=== PATIENT | male | born 1970 | race Caucasian/White ===

== ENCOUNTER → 2019-08-02 14:01 | Outpatient (CLI) | payer MEDICARE, MEDICAID, SELFPAY ==
[2019-08-02 14:23] LABS: Basophils # 0.1 K/mm3 (0-0.2); Basophils % 0.9 % (0.1-2.0); Eosinophils # 0.1 K/mm3 (0.0-0.4); Eosinophils % 1.5 % (0.1-12.0); Hematocrit 43.6 % (42.0-52.0); Lymphocytes # 2.6 K/mm3 (0.7-4.5); Lymphocytes % 30.2 % (10-50); Mean Corpuscular HGB Conc 34.3 g/dL (31.8-35.4); Mean Corpuscular Hemoglobin 29.6 pg (27.0-31.2); Mean Corpuscular Volume 86.4 fl (80-94); Mean Platelet Volume 8.6 fl (7.4-10.4); Monocytes # 0.6 K/mm3 (0.1-1.0); Monocytes % 7.2 % (1.7-9.3); Neutrophils # 5.1 K/mm3 (1.8-7.8); Neutrophils % 60.3 % (37.0-80.0); Platelet Count 180 K/mm3 (142-424); Red Blood Count 5.05 M/mm3 (4.60-6.20); Red Cell Distribution Width 13.7 % (11.5-17.5); White Blood Count 8.5 K/mm3 (4.8-10.8)
[2019-08-02 15:01] LABS: Albumin/Globulin Ratio 1.5 (1.1-1.8); Alkaline Phosphatase 91 U/L (38-126); Anion Gap 10.2 mEq/L (5-15); Aspartate Amino Transferase 27 U/L (17-59); Blood Urea Nitrogen 20 mg/dl (9-20); Calcium 9.3 mg/dl (8.4-10.2); Carbon Dioxide 31 mmol/L (22.0-30.0); Chloride 101 mmol/L (98-107); Estimated Glomerular Filt Rate 142 ml/min (>60); GFR (African American) 172 ML/MIN (>60); Globulin 2.7 g/dL (1.3-3.2); Glucose 85 mg/dl (74-100); Potassium 4.2 mmoL/L (3.5-5.1); Sodium 138 mmol/L (136-145); Total Protein,Serum 6.7 g/dl (6.3-8.2)
[2019-08-02 15:06] LABS: Bilirubin,Total < 0.1 mg/dl (0.2-1.3); Occult Blood,Stool Positive (Negative)
[2019-08-02 15:20] LABS: Alanine Aminotransferase 34 U/L (12-78)
== END ==
PROVIDERS: Visit Provider Internal Medicine Adolescent Medicine
DX: K92.1 Melena (principal)
CPT/HCPCS: 80053; 82272; 85025; G0328

== ENCOUNTER → 2020-09-07 09:33 | Outpatient (CLI) | payer MEDICARE, MEDICAID, SELFPAY ==
[2020-09-07 14:20] LABS: Chloride 101 mmol/L (98-107); Potassium 3.5 mmoL/L (3.5-5.1); Sodium 138 mmol/L (136-145)
[2020-09-07 14:23] LABS: Alanine Aminotransferase 33 U/L (12-78); Albumin Level 3.8 g/dl (3.5-5.0); Albumin/Globulin Ratio 1.6 (1.1-1.8); Alkaline Phosphatase 103 U/L (38-126); Anion Gap 10.5 mEq/L (5-15); Aspartate Amino Transferase 23 U/L (17-59); Bilirubin,Total 0.3 mg/dl (0.2-1.3); Blood Urea Nitrogen 22 mg/dl (9-20); Calcium 9.2 mg/dl (8.4-10.2); Carbon Dioxide 30 mmol/L (22.0-30.0); Estimated Glomerular Filt Rate 141 ml/min (>60); GFR (African American) 171 ML/MIN (>60); Globulin 2.4 g/dL (1.3-3.2); Glucose 133 mg/dl (74-100); Total Protein,Serum 6.2 g/dl (6.3-8.2)
[2020-09-07 14:34] LABS: Basophils # 0.1 K/mm3 (0-0.2); Basophils % 0.6 % (0.1-2.0); Eosinophils # 0.2 K/mm3 (0.0-0.4); Eosinophils % 2.2 % (0.1-12.0); Hematocrit 43.8 % (42.0-52.0); Hemoglobin 14.6 g/dL (14.1-18.0); Lymphocytes # 2.8 K/mm3 (0.7-4.5); Lymphocytes % 32.2 % (10-50); Mean Corpuscular HGB Conc 33.3 g/dL (31.8-35.4); Mean Corpuscular Hemoglobin 29.6 pg (27.0-31.2); Mean Corpuscular Volume 89.1 fl (80-94); Mean Platelet Volume 9.7 fl (7.4-10.4); Monocytes # 0.8 K/mm3 (0.1-1.0); Monocytes % 9.6 % (1.7-9.3); Neutrophils # 4.9 K/mm3 (1.8-7.8); Neutrophils % 55.4 % (37.0-80.0); Platelet Count 181 K/mm3 (142-424); Red Blood Count 4.92 M/mm3 (4.60-6.20); Red Cell Distribution Width 14.4 % (11.5-17.5); White Blood Count 8.8 K/mm3 (4.8-10.8)
[2020-09-13 22:56] LABS: Free Valproic Acid (Depakote) 7.9
== END ==
PROVIDERS: Visit Provider Nurse Practitioner Family
DX: G81.94 Hemiplegia, unspecified affecting left nondominant side (principal); Z51.81 Encounter for therapeutic drug level monitoring
CPT/HCPCS: 36415; 80053; 80165; 85025

== ENCOUNTER → 2021-01-13 07:48 | Outpatient (CLI) | payer MEDICARE, MEDICAID, SELFPAY ==
[2021-01-13 09:03] LABS: Basophils # 0.1 K/mm3 (0-0.2); Basophils % 1.2 % (0.1-2.0); Eosinophils # 0.2 K/mm3 (0.0-0.4); Eosinophils % 2.8 % (0.1-12.0); Hematocrit 46.8 % (42.0-52.0); Lymphocytes # 3.2 K/mm3 (0.7-4.5); Mean Corpuscular HGB Conc 32.1 g/dL (31.8-35.4); Mean Corpuscular Hemoglobin 29.4 pg (27.0-31.2); Mean Corpuscular Volume 91.5 fl (80-94); Mean Platelet Volume 9.2 fl (7.4-10.4); Monocytes # 0.7 K/mm3 (0.1-1.0); Monocytes % 8.3 % (1.7-9.3); Neutrophils # 3.8 K/mm3 (1.8-7.8); Neutrophils % 47.7 % (37.0-80.0); Platelet Count 207 K/mm3 (142-424); Red Blood Count 5.12 M/mm3 (4.60-6.20); Red Cell Distribution Width 14.4 % (11.5-17.5)
[2021-01-13 09:24] LABS: Chloride 99 mmol/L (98-107)
[2021-01-13 09:25] LABS: Potassium 3.8 mmoL/L (3.5-5.1); Sodium 138 mmol/L (136-145)
[2021-01-13 09:27] LABS: Blood Urea Nitrogen 13 mg/dl (9-20); Estimated Glomerular Filt Rate 141 ml/min (>60); GFR (African American) 171 ML/MIN (>60)
[2021-01-13 09:28] LABS: Alanine Aminotransferase 19 U/L (12-78); Albumin Level 3.6 g/dl (3.5-5.0); Albumin/Globulin Ratio 1.5 (1.1-1.8); Alkaline Phosphatase 93 U/L (38-126); Anion Gap 12.8 mEq/L (5-15); Aspartate Amino Transferase 19 U/L (17-59); Bilirubin,Total < 0.1 mg/dl (0.2-1.3); Calcium 8.9 mg/dl (8.4-10.2); Carbon Dioxide 30 mmol/L (22.0-30.0); Chol/HDL Ratio 6.9 (1-3.5); Cholesterol 166 mg/dl (140-200); Globulin 2.4 g/dL (1.3-3.2); Glucose 113 mg/dl (74-100); HDL Cholesterol 24 mg/dl (40-60); Triglycerides 322 mg/dl (30-150); VLDL Cholesterol 64 mg/dL (0-40)
[2021-01-13 09:39] LABS: Direct LDL Cholesterol 103.98 mg/dL (100-129)
[2021-01-29 15:54] LABS: Free Valproic Acid (Depakote) 6.1
== END ==
PROVIDERS: Visit Provider Nurse Practitioner Family
DX: G81.94 Hemiplegia, unspecified affecting left nondominant side (principal); F41.9 Anxiety disorder, unspecified; Z79.899 Other long term (current) drug therapy
CPT/HCPCS: 36415; 80053; 80061; 80165; 85025

== ENCOUNTER → 2021-01-31 07:14 | Outpatient (CLI) | payer MEDICARE, MEDICAID, SELFPAY ==
[2021-05-04 04:21] LABS: Free Valproic Acid (Depakote) 11.8
== END ==
PROVIDERS: Visit Provider Nurse Practitioner Family
DX: Z51.81 Encounter for therapeutic drug level monitoring (principal)
CPT/HCPCS: 36415; 80165

== ENCOUNTER → 2021-03-17 06:59 | Outpatient (CLI) | payer MEDICARE, MEDICAID, SELFPAY ==
[2021-03-17 08:51] LABS: Basophils # 0.1 K/mm3 (0-0.2); Basophils % 0.9 % (0.1-2.0); Eosinophils # 0.2 K/mm3 (0.0-0.4); Eosinophils % 1.9 % (0.1-12.0); Hematocrit 45.5 % (42.0-52.0); Hemoglobin 14.6 g/dL (14.1-18.0); Lymphocytes # 2.9 K/mm3 (0.7-4.5); Lymphocytes % 36.7 % (10-50); Mean Corpuscular HGB Conc 32.2 g/dL (31.8-35.4); Mean Corpuscular Hemoglobin 28.9 pg (27.0-31.2); Mean Corpuscular Volume 89.6 fl (80-94); Mean Platelet Volume 9.2 fl (7.4-10.4); Monocytes # 0.7 K/mm3 (0.1-1.0); Monocytes % 9.3 % (1.7-9.3); Neutrophils # 4.1 K/mm3 (1.8-7.8); Neutrophils % 51.2 % (37.0-80.0); Platelet Count 195 K/mm3 (142-424); Red Blood Count 5.07 M/mm3 (4.60-6.20); Red Cell Distribution Width 14.7 % (11.5-17.5)
[2021-03-17 09:09] LABS: Alanine Aminotransferase 21 U/L (12-78); Albumin Level 3.9 g/dl (3.5-5.0); Albumin/Globulin Ratio 1.5 (1.1-1.8); Alkaline Phosphatase 85 U/L (38-126); Anion Gap 10.7 mEq/L (5-15); Aspartate Amino Transferase 21 U/L (17-59); Bilirubin,Total 0.2 mg/dl (0.2-1.3); Blood Urea Nitrogen 21 mg/dl (9-20); Calcium 9.1 mg/dl (8.4-10.2); Carbon Dioxide 32 mmol/L (22.0-30.0); Chloride 103 mmol/L (98-107); Chol/HDL Ratio 8.3 (1-3.5); Cholesterol 182 mg/dl (140-200); Estimated Glomerular Filt Rate 175 ml/min (>60); GFR (African American) 211 ML/MIN (>60); Globulin 2.6 g/dL (1.3-3.2); Glucose 134 mg/dl (74-100); HDL Cholesterol 22 mg/dl (40-60); Potassium 3.7 mmoL/L (3.5-5.1); Sodium 142 mmol/L (136-145); Total Protein,Serum 6.5 g/dl (6.3-8.2); Triglycerides 376 mg/dl (30-150); VLDL Cholesterol 75 mg/dL (0-40)
[2021-03-17 09:20] LABS: Direct LDL Cholesterol 114.37 mg/dL (100-129); Valproic Acid, (Depakene) 25.9 ug/ml (50-100)
== END ==
PROVIDERS: Visit Provider Nurse Practitioner Family
DX: R79.89 Other specified abnormal findings of blood chemistry (principal); Z51.81 Encounter for therapeutic drug level monitoring
CPT/HCPCS: 36415; 80053; 80061; 80164; 85025

== ENCOUNTER → 2021-05-23 07:31 | Outpatient (CLI) | payer MEDICARE, MEDICAID, SELFPAY ==
[2021-05-23 14:38] LABS: Basophils # 0.1 K/mm3 (0-0.2); Basophils % 0.8 % (0.1-2.0); Eosinophils # 0.2 K/mm3 (0.0-0.4); Eosinophils % 1.9 % (0.1-12.0); Hematocrit 48.2 % (42.0-52.0); Hemoglobin 15.2 g/dL (14.1-18.0); Lymphocytes # 2.1 K/mm3 (0.7-4.5); Lymphocytes % 25.2 % (10-50); Mean Corpuscular HGB Conc 31.6 g/dL (31.8-35.4); Mean Corpuscular Hemoglobin 29.4 pg (27.0-31.2); Mean Corpuscular Volume 93.2 fl (80-94); Mean Platelet Volume 10.1 fl (7.4-10.4); Monocytes # 0.9 K/mm3 (0.1-1.0); Monocytes % 10.6 % (1.7-9.3); Neutrophils # 5.1 K/mm3 (1.8-7.8); Neutrophils % 61.6 % (37.0-80.0); Platelet Count 210 K/mm3 (142-424); Red Blood Count 5.17 M/mm3 (4.60-6.20); Red Cell Distribution Width 15.4 % (11.5-17.5); White Blood Count 8.3 K/mm3 (4.8-10.8)
[2021-05-23 14:50] LABS: Chloride 104 mmol/L (98-107); Potassium 3.9 mmoL/L (3.5-5.1); Sodium 142 mmol/L (136-145)
[2021-05-23 14:52] LABS: Blood Urea Nitrogen 21 mg/dl (9-20); Estimated Glomerular Filt Rate 175 ml/min (>60); GFR (African American) 211 ML/MIN (>60)
[2021-05-23 14:53] LABS: Alanine Aminotransferase 23 U/L (12-78); Albumin/Globulin Ratio 1.5 (1.1-1.8); Alkaline Phosphatase 83 U/L (38-126); Anion Gap 10.9 mEq/L (5-15); Aspartate Amino Transferase 23 U/L (17-59); Bilirubin,Total 0.2 mg/dl (0.2-1.3); Carbon Dioxide 31 mmol/L (22.0-30.0); Chol/HDL Ratio 8.1 (1-3.5); Cholesterol 179 mg/dl (140-200); Globulin 2.6 g/dL (1.3-3.2); Glucose 161 mg/dl (74-100); HDL Cholesterol 22 mg/dl (40-60); Total Protein,Serum 6.6 g/dl (6.3-8.2); Triglycerides 372 mg/dl (30-150); VLDL Cholesterol 74 mg/dL (0-40)
[2021-05-23 16:23] LABS: Valproic Acid, (Depakene) 13.4 ug/ml (50-100)
== END ==
PROVIDERS: Visit Provider Nurse Practitioner Family
DX: Z51.81 Encounter for therapeutic drug level monitoring (principal)
CPT/HCPCS: 36415; 80053; 80061; 80164; 85025

== ENCOUNTER 2021-06-16 03:43 | Inpatient (IN) | payer MEDICARE, MEDICAID, SELFPAY ==
[2021-06-16] VITALS (27 sets, daily range): BP systolic 80–114; BP diastolic 49–68; PULSE 83–124; RESP 15–39; TEMP 37.6–39.6; O2SAT 91–98; BMI 23.3; BMI 23.2
--- NOTE | 2021-06-16 03:41 | ECG_ITS ---
APPROVED REPORT Exam: Resting ECG HR:131 bpm ECG Measurements Heart Rate 131 AXES SC 100 P 60 QRSd 80 QRS 117 QT 355 T 69 QTc 432 Conclusion SINUS TACHYCARDIA WITH SHORT SC INTERVAL POSSIBLE RIGHT VENTRICULAR HYPERTROPHY [SOME/ALL OF: PROMINENT R IN V1, LATE TRANSITION, RAD, LEONORA, SSS] MODERATE ST DEPRESSION [0.05+ mV ST DEPRESSION] ABNORMAL ECG UNCONFIRMED REPORT Electronically signed by : Dm Headley MD 06/16/2021 18:44:47
--- NOTE | 2021-06-16 03:44 | XR_ITS ---
PROCEDURE INFORMATION: Exam: XR Chest Exam date and time: 06/16/2021 3:44 AM Age: 50 years old Clinical indication: Condition or disease; Lung condition and disease; Respiratory distress; Additional info: Resp. Distress TECHNIQUE: Imaging protocol: XR of the chest. Views: 1 view. COMPARISON: No relevant prior studies available. FINDINGS: Lungs: Nonspecific bibasilar opacities, favoring atelectasis or pneumonia. Pleural spaces: No pleural effusion. No pneumothorax. Heart/Mediastinum: Unremarkable cardiomediastinal silhouette. Bones/joints: No acute osseous findings. Intraperitoneal space: Questionable pneumoperitoneum. IMPRESSION: 1. Nonspecific bibasilar opacities, favoring atelectasis or pneumonia. Recommend imaging follow-up until complete resolution. 2. Questionable pneumoperitoneum. Correlate with CT abdomen pelvis.
[2021-06-16 03:53] LABS: ABG Base Excess -0.6 mmol/L (-2.4-2.3); ABG HCO3 24.4 mmhg (22.0-26.0); ABG Oxygen Saturation 87 % (90-100); ABG PCO2 41.4 mmhg (35.0-45.0); ABG PH 7.39 mmol/L (7.35-7.45); ABG PO2 52.3 mmhg (80-100); ABG TCO2 25.7 mmhg (23-27)
[2021-06-16 03:54] LABS: Allen's Test Acceptable; Oxygen 100 %; Source Right Radial
--- NOTE | 2021-06-16 04:15 | CT_ITS ---
PROCEDURE INFORMATION: Exam: CT Abdomen And Pelvis With Contrast Exam date and time: 06/16/2021 4:15 AM Age: 50 years old Clinical indication: Abnormal findings; Abnormal radiologic finding of the abdomen; Radiologic exam and body structure: Chest xray; Additional info: Poss pneumoperitoneum TECHNIQUE: Imaging protocol: Computed tomography of the abdomen and pelvis with contrast. Radiation optimization: All CT scans at this facility use at least one of these dose optimization techniques: automated exposure control; mA and/or kV adjustment per patient size (includes targeted exams where dose is matched to clinical indication); or iterative reconstruction. Contrast material: ISOVUE; Contrast volume: 75 ml; Contrast route: IV; COMPARISON: CR XR CHEST PORTABLE 06/16/2021 3:48 AM FINDINGS: Tubes, catheters and devices: PEG tube in-situ. Lungs: Bibasilar consolidative opacities suspicious for pneumonia. Liver: No suspicious mass. Gallbladder and bile ducts: Cholelithiasis Pancreas: No ductal dilation. No peripancreatic inflammatory changes. Spleen: Several calcified granulomas in the spleen. Adrenal glands: No mass. Kidneys and ureters: No hydronephrosis. Stomach and bowel: Large amount of stool in the colon. Appendix: No evidence of acute appendicitis. Intraperitoneal space: No pneumoperitoneum. No ascites. Vasculature: No abdominal aortic aneurysm. Lymph nodes: No enlarged lymph nodes. Urinary bladder: Herrera catheter balloon in the urinary bladder. Reproductive: The prostate is not significantly enlarged. Bones/joints: Osteopenia. Soft tissues: The patient's probable status post right anterior abdominal wall hernia hernia or defect repair IMPRESSION: 1. Bibasilar consolidative opacities suspicious for pneumonia. Recommend imaging follow-up until complete resolution. 2. No pneumoperitoneum.
[2021-06-16 04:16] LABS: POC Glucose,Bedside 473 (70-110)
[2021-06-16 04:20] LABS: Coronavirus 19, PCR Not Detected (NotDetected); Influenza A, PCR Not Detected (NotDetected); Influenza B, PCR Not Detected (NotDetected)
[2021-06-16 04:22] LABS: Basophils # 0.5 K/mm3 (0-0.2); Basophils % 1.9 % (0.1-2.0); Hematocrit 56.7 % (42.0-52.0); Hemoglobin 17.3 g/dL (14.1-18.0); Lymphocytes # 2.8 K/mm3 (0.7-4.5); Lymphocytes % 10.7 % (10-50); Mean Corpuscular HGB Conc 30.5 g/dL (31.8-35.4); Mean Corpuscular Hemoglobin 29.6 pg (27.0-31.2); Mean Corpuscular Volume 96.9 fl (80-94); Mean Platelet Volume 13.8 fl (7.4-10.4); Monocytes % 3.8 % (1.7-9.3); Neutrophils # 21.6 K/mm3 (1.8-7.8); Neutrophils % 83.5 % (37.0-80.0); Platelet Count 241 K/mm3 (142-424); Red Blood Count 5.85 M/mm3 (4.60-6.20); Red Cell Distribution Width 15.4 % (11.5-17.5); White Blood Count 25.9 K/mm3 (4.8-10.8)
[2021-06-16 04:26] LABS: Microscopic, Urine URINE MICROSCOPIC (MICROSCOPIC)
[2021-06-16 04:28] LABS: Alanine Aminotransferase 153 U/L (12-78); Albumin/Globulin Ratio 1.3 (1.1-1.8); Alkaline Phosphatase 140 U/L (38-126); Anion Gap 16.5 mEq/L (5-15); Aspartate Amino Transferase 96 U/L (17-59); Bilirubin,Total 0.5 mg/dl (0.2-1.3); Blood Urea Nitrogen 55 mg/dl (9-20); Calcium 10.2 mg/dl (8.4-10.2); Carbon Dioxide 30 mmol/L (22.0-30.0); Creatinine Clearance Estimated 55 mL/min (50-200); Estimated Glomerular Filt Rate 53 ml/min (>60); GFR (African American) 64 ML/MIN (>60); Globulin 3.2 g/dL (1.3-3.2); Magnesium 2.3 mg/dl (1.6-2.3); Potassium 3.5 mmoL/L (3.5-5.1); Total Protein,Serum 7.2 g/dl (6.3-8.2)
[2021-06-16 04:29] LABS: Appearance,Urine CLEAR (Clear); Blood, Urine Negative (Negative); Color,Urine YELLOW (Yellow); Glucose,Urine (UA) TRACE (Negative); Ketones,Urine TRACE (Negative); Leukocyte Esterase,Urine Negative (Negative); Nitrate,Urine Negative (Negative); Protein,Urine 1+ (Negative); Specific Gravity, Urine >= 1.030 (1.005-1.030)
[2021-06-16 04:33] LABS: C-Reactive Protein 52.3 mg/L (0-4)
[2021-06-16 04:34] LABS: MANUAL DIFFERENTIAL MANUAL DIFFERENTIAL (MANUAL DIFF)
[2021-06-16 04:35] LABS: Bilirubin,Urine Negative (Negative)
[2021-06-16 04:38] LABS: Chloride 127 mmol/L (98-107); Glucose 559 mg/dl (74-100); Sodium 170 mmol/L (136-145)
[2021-06-16 04:39] LABS: Lactic Acid 5.9 mmol/L (0.7-2.1)
--- NOTE | 2021-06-16 04:40 | PC.NURSE ---
Dr. Morales notified of critical sodium, chloride, lactic, and glucose.
[2021-06-16 04:45] LABS: Troponin I < 0.01 ng/ml (0.00-0.034)
[2021-06-16 04:47] LABS: Procalcitonin 0.814 ng/mL (0.0-2.0)
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
--- NOTE | 2021-06-16 04:55 | PC.NURSE ---
pt to CT
[2021-06-16 05:05] LABS: Bacteria,Urine 2+ /lpf
[2021-06-16 05:22] LABS: Lymphocytes % 19 % (10-50); Monocytes % 2 % (2-9); Neutrophils % 79 % (42-76); Total Cells Counted 100
[2021-06-16 05:23] LABS: Platelet Estimate Normal; Stomatocytes 1+
[2021-06-16 05:25] LABS: Erythrocyte Sedimentation Rate 6 mm/hr (0-20)
[2021-06-16 05:44] LABS: Hemoglobin A1C 6.6 % (4.0-6.0)
--- NOTE | 2021-06-16 08:13 | PC.NURSE ---
fsbs reading high, lab to come draw random glucose
--- NOTE | 2021-06-16 08:14 | HMH.PHACONS ---
- Pharmacy Consult Date: 06/16/21 Time: 08:14 Referring provider: DR BURGESS Reason for Consult:: VANCOMYCIN DOSING CONSULT Allergies and ADEs:: Allergies Allergy/AdvReac Type Severity Reaction Status Date / Time No Known Allergies Allergy Verified 06/16/21 04:14 Home Medications:: Home Medications Medication Instructions Recorded Confirmed Type Acetaminophen [Tylenol 650 mg G-TUBE Q4HP PRN 06/16/21 06/16/21 History 325mg/10.15mL solution UDC] Baclofen [Lioresal 10mg tablet] 10 mg G-TUBE TID 06/16/21 06/16/21 History Dextromethorphan HBr/Quinidine 1 each G-TUBE BID 06/16/21 06/16/21 History [Nuedexta 20-10 mg Capsule] Fluoxetine HCl 20 mg G-TUBE DAILY 06/16/21 06/16/21 History LORazepam [Lorazepam 1mg Tablet] 1 mg G-TUBE Q8HP PRN 06/16/21 06/16/21 History Metoclopramide HCl [Metoclopramide 10 mg G-TUBE ACHS 06/16/21 06/16/21 History 5mg/5ml Oral Soln] Omeprazole [Omeprazole 40mg 40 mg G-TUBE BID 06/16/21 06/16/21 History Capsule] Simethicone [Mylicon 40mg/0.6mL 1.2 ml G-TUBE Q6 06/16/21 06/16/21 History drops; 30mL bottle] Valproic Acid [Depakene syrup 7.5 ml G-TUBE HS 06/16/21 06/16/21 History 250mg/5mL dean UDC] Height: 1.65 m Weight: 63.503 kg Laboratory Results:: Laboratory Results - last 24 hr 06/16/21 03:51: Specimen Source Right radial, O2 % 100, ABG pH 7.39, ABG pCO2 41.4, ABG pO2 52.3 L, ABG HCO3 24.4, ABG Total CO2 25.7, ABG O2 Saturation 87 L*, ABG Base Excess -0.6, Eliazar Test Acceptable 06/16/21 03:54: POC Glucose 473 H* 06/16/21 04:00: WBC 25.9 H*, RBC 5.85, Hgb 17.3, Hct 56.7 H, MCV 96.9 H, MCH 29.6, MCHC 30.5 L, RDW 15.4, Plt Count 241, MPV 13.8 H, Neut % (Auto) 83.5 H, Lymph % (Auto) 10.7, [place] % (Auto) 3.8, Eos % (Auto) 0.0 L, Baso % (Auto) 1.9, Neut # (Auto) 21.6 H, Lymph # (Auto) 2.8, [place] # (Auto) 1.0, Eos # (Auto) 0.0, Baso # (Auto) 0.5 H, Total Counted 100, Neutrophils % (Manual) 79 H, Lymphocytes % (Manual) 19, Monocytes % (Manual) 2, Platelet Estimate Normal, RBC Morphology Not Reportable, Stomatocytes 1+, ESR 6 06/16/21 04:00: Sodium 170 H*, Potassium 3.5, Chloride 127 H, Carbon Dioxide 30, Anion Gap 16.5 H, BUN 55 H, Creatinine 1.40 H, Estimated Creat Clear 55, Estimated GFR 53 L, Est GFR ( Amer) 64, Glucose 559 H*, Calcium 10.2, Magnesium 2.3, Total Bilirubin 0.5, AST 96 H, ALT 153 H, Alkaline Phosphatase 140 H, Troponin I < 0.01, C-Reactive Protein 52.3 H, Total Protein 7.2, Albumin 4.0, Globulin 3.2, Albumin/Globulin Ratio 1.3, Procalcitonin 0.814 06/16/21 04:00: SARS-CoV-2 (PCR) Not detected, Influenza A Untype (PCR) Not detected, Influenza Type B (PCR) Not detected 06/16/21 04:00: Urine Color Yellow, Urine Appearance Clear, Urine pH 5.0, Ur Specific [place] >= 1.030, Urine Protein 1+, Urine Glucose (UA) Trace, Urine Ketones Trace, Urine Blood Negative, Urine Nitrate Negative, Urine Bilirubin Negative, Urine Urobilinogen 1.0, Ur Leukocyte Esterase Negative, Urine WBC 3-5, Urine Bacteria 2+ 06/16/21 04:00: Lactate 5.9 H 06/16/21 04:00: Hemoglobin A1c 6.6 H Assessment and Plan - Assessment and plan all Dx Assessment and Plan for all problems:: Pharmacokinetic dosing service Objective: Age: 50 yo Serum creatinine: 1.4 mg/dL Height: 65.0 Inches Weight (kg): 63.503 Diagnosis: SEPSIS Assessment: IBW (kg): 61.50 Dosing wt(kg): 63.503 Estimated Creatinine clearance (ml/min): 53.7 CRCL method: Cockcroft and Gault using ibw(default). Drug selected: Vancomycin Loading dose (mg): 1000 MG Vd (liters): 47.6 (factor used: 0.75 L/kg) Benjamin (hr-1): 0.049 Half life (hrs): 14.15 CLvanco=?? 2.332 L/hr Recommended dose: 1250 mg Interval: 24 hrs Infusion time (hrs): 2.0 Predicted peak (mcg/mL): 36.2 Predicted trough (mcg/mL): 12.32 Total body weight is being used for vancomycin dosing. Recommendations: =
[2021-06-16 08:18] LABS: POC Glucose,Bedside 521 (70-110)
[2021-06-16 08:23] LABS: Acetone, Serum (Rapid) None Detected (None Detect)
[2021-06-16 08:24] LABS: Reflex Lactic Add Lactic Reflex
[2021-06-16 08:37] LABS: Glucose,Random 475 mg/dL (74-100)
--- NOTE | 2021-06-16 08:37 | PC.NURSE ---
critical lab called to Atif Nguyen RN
[2021-06-16 08:42] LABS: Lactic Acid Follow Up (RFLX 1) 4.7 mmol/L (0.7-2.1)
--- NOTE | 2021-06-16 09:42 | PC.NURSE ---
Called and spoke with Dr Headley r/t pt's glucose. He states to put pt on high intensity sliding scale. Pt nurse aware.
--- NOTE | 2021-06-16 10:18 | PC.NURSE ---
Spoke with Dr. Headley about sliding scale dose due to sugar being over 500. Dr. Headley advised to give 15 units of regular insulin. Repeated and verified order with Dr. Headley
[2021-06-16 10:26] LABS: Reflex Lactic (2 hrs) Add Lactic Reflex
[2021-06-16 11:22] LABS: Lactic Acid Follow up (RFLX 2) 4.1 mmol/L (0.7-2.1)
[2021-06-16 12:15] LABS: POC Glucose,Bedside 512 (70-110)
--- NOTE | 2021-06-16 12:23 | PC.NURSE ---
Neymar speaking with Dr. Headley regarding labs
[2021-06-16 14:02] LABS: POC Glucose,Bedside 418 (70-110)
--- NOTE | 2021-06-16 14:48 | PC.NURSE ---
REPORT CALLED TO FLOOR
--- NOTE | 2021-06-16 15:10 | PC.NURSE ---
pt has left dept
--- NOTE | 2021-06-16 15:10 | PC.NURSE ---
pt arrived to the floor at this time.
[2021-06-16 16:16] LABS: POC Glucose,Bedside 398 (70-110)
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
--- NOTE | 2021-06-16 18:39 | PC.NURSE ---
Addendum entered by Hayley Pablo RN 06/16/21 18:46: POA CALLED BACK AND STATED THAT THEY WANTED PT TO BE A DNI. Original Note: NOTIFIED PT'S SISTER WHO IS LISTED POA TO VERIFY CODE STATUS. SHAE STATED SHE WOULD HAVE TO CONTACT PT'S CHILDREN TO VERIFY WITH THEM THAT THEY STILL WANT PT TO BE A DNR. POA STATED SHE WOULD CALL BACK TO LET STAFF KNOW. IT WAS EXPLAINED TO POIgnacia UNTIL WE GOT A CALL BACK PT WOULD BE A FULL CODE.
--- NOTE | 2021-06-16 19:13 | PC.WOUNDNOTE ---
Addendum entered by Hayley Pablo RN 06/16/21 19:14: STAGE 1 NOTED TO THE LEFT HEEL Original Note: STAGE 2 NOTED TO THE COCCYX
[2021-06-16 20:12] LABS: POC Glucose,Bedside 183 (70-110)
[2021-06-17] VITALS (8 sets, daily range): BP systolic 86–96; BP diastolic 39–59; PULSE 69–97; RESP 14–22; TEMP 36.2–38.4; O2SAT 88–97; BMI 23.1
[2021-06-17 06:10] LABS: POC Glucose,Bedside 152 (70-110)
[2021-06-17 07:31] LABS: Basophils # 0.4 K/mm3 (0-0.2); Basophils % 2.1 % (0.1-2.0); Eosinophils % 0.2 % (0.1-12.0); Hematocrit 41.7 % (42.0-52.0); Hemoglobin 12.6 g/dL (14.1-18.0); Lymphocytes % 10.7 % (10-50); Mean Corpuscular HGB Conc 30.3 g/dL (31.8-35.4); Mean Corpuscular Hemoglobin 29.5 pg (27.0-31.2); Mean Corpuscular Volume 97.5 fl (80-94); Mean Platelet Volume 14.4 fl (7.4-10.4); Monocytes # 0.7 K/mm3 (0.1-1.0); Monocytes % 3.8 % (1.7-9.3); Neutrophils # 15.4 K/mm3 (1.8-7.8); Neutrophils % 83.3 % (37.0-80.0); Platelet Count 95 K/mm3 (142-424); Red Blood Count 4.27 M/mm3 (4.60-6.20); Red Cell Distribution Width 15.4 % (11.5-17.5); White Blood Count 18.5 K/mm3 (4.8-10.8)
[2021-06-17 07:32] LABS: Potassium 3.7 mmoL/L (3.5-5.1)
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
[2021-06-17 07:35] LABS: Anion Gap 3.7 mEq/L (5-15); Blood Urea Nitrogen 49 mg/dl (9-20); Calcium 6.9 mg/dl (8.4-10.2); Carbon Dioxide 33 mmol/L (22.0-30.0); Creatinine Clearance Estimated 70 mL/min (50-200); Estimated Glomerular Filt Rate 70 ml/min (>60); GFR (African American) 85 ML/MIN (>60); Glucose 174 mg/dl (74-100)
[2021-06-17 07:48] LABS: Chloride 138 mmol/L (98-107); Sodium 171 mmol/L (136-145)
[2021-06-17 08:27] LABS: MANUAL DIFFERENTIAL MANUAL DIFFERENTIAL (MANUAL DIFF)
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
[2021-06-17 09:34] LABS: Lymphocytes % 13 % (10-50); Macrocytosis 1+; Monocytes % 8 % (2-9); Neutrophils % 79 % (42-76); Platelet Estimate Normal; Total Cells Counted 100
[2021-06-17 09:35] LABS: Hypochromasia 2+
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
[2021-06-17 12:19] LABS: POC Glucose,Bedside 274 (70-110)
--- NOTE | 2021-06-17 15:43 | HMH.PHAINT ---
MEDICATION RECONCILIATION COMPLETED ON PATIENT USING MAR FROM CUSTODIAL. -ARMANDO MATTHEW, EDISD
[2021-06-17 17:58] LABS: POC Glucose,Bedside 333 (70-110)
--- NOTE | 2021-06-17 18:13 | PC.NURSE ---
PT IS RESTING IN BED. ALERT TO SELF ONLY. TURNED AND REPOSITIONED IN BED FREQUENTLY. TUBE FEEDINGS WERE STARTED AT 1145. 60 ML'S FLUSH GIVEN AT 1600 DUE TO HAVING IVF'S @ 150 ML'S/HR. 10 ML'S RESIDUAL. PT BITES THE TOOTHETTE WHILE DOING ORAL CARE. RECEIVED TYLENOL X1 THIS SHIFT FOR FEVER. LUNG SOUNDS HAVE SCATTERED RHONCHI. ABDOMEN SOFT/NON TENDER WITH ACTIVE BOWEL SOUNDS. PT HAS HAD 2 LARGE BOWEL MOVEMENTS THIS SHIFT. WILL CONTINUE TO MONITOR.
--- NOTE | 2021-06-17 18:19 | PC.NURSE ---
pt unable to follow directions at this time. left cup at bedside.
[2021-06-17 19:45] LABS: Blood Urea Nitrogen 45 mg/dl (9-20); Creatinine Clearance Estimated 70 mL/min (50-200); Estimated Glomerular Filt Rate 70 ml/min (>60); GFR (African American) 85 ML/MIN (>60)
[2021-06-17 19:46] LABS: Anion Gap 4.5 mEq/L (5-15); Calcium 6.8 mg/dl (8.4-10.2); Carbon Dioxide 28 mmol/L (22.0-30.0); Glucose 258 mg/dl (74-100)
[2021-06-17 19:49] LABS: Chloride 139 mmol/L (98-107); Potassium 2.5 mmoL/L (3.5-5.1); Sodium 169 mmol/L (136-145)
[2021-06-17 21:19] LABS: POC Glucose,Bedside 247 (70-110)
--- NOTE | 2021-06-17 21:48 | PC.NURSE ---
Dr Sanchez aware of patients critical labs. New orders per jul.
[2021-06-18] VITALS (10 sets, daily range): BP systolic 93–117; BP diastolic 57–66; PULSE 80–103; RESP 18–20; TEMP 37.2–38.5; O2SAT 92–98; BMI 23.8
--- NOTE | 2021-06-18 05:07 | PC.NURSE ---
Pt rested well t/o the shift. Turned and repositioned q2 hours by staff. Patient tolerating continuous feeds well, feeds remain at 20ml/hr with goal rate of 60ml/hour. Patient has had one bowel movement this shift. Patient was placed on compliance monitor due to receiving potassium, pt has been NSR on tele. Will continue to monitor.
[2021-06-18 06:31] LABS: Basophils % 0.3 % (0.1-2.0); Eosinophils % 0.1 % (0.1-12.0); Hematocrit 38.9 % (42.0-52.0); Hemoglobin 11.8 g/dL (14.1-18.0); Lymphocytes # 1.6 K/mm3 (0.7-4.5); Lymphocytes % 12.9 % (10-50); Mean Corpuscular HGB Conc 30.3 g/dL (31.8-35.4); Mean Corpuscular Hemoglobin 29.8 pg (27.0-31.2); Mean Corpuscular Volume 98.4 fl (80-94); Mean Platelet Volume 15.1 fl (7.4-10.4); Monocytes # 0.4 K/mm3 (0.1-1.0); Neutrophils # 10.2 K/mm3 (1.8-7.8); Neutrophils % 83.6 % (37.0-80.0); Platelet Count 105 K/mm3 (142-424); Red Blood Count 3.95 M/mm3 (4.60-6.20); Red Cell Distribution Width 15.6 % (11.5-17.5); White Blood Count 12.2 K/mm3 (4.8-10.8)
[2021-06-18 06:47] LABS: Alanine Aminotransferase 55 U/L (12-78); Aspartate Amino Transferase 60 U/L (17-59); Blood Urea Nitrogen 38 mg/dl (9-20); Creatinine Clearance Estimated 79 mL/min (50-200); Estimated Glomerular Filt Rate 78 ml/min (>60); GFR (African American) 95 ML/MIN (>60)
[2021-06-18 06:48] LABS: Albumin Level 2.7 g/dl (3.5-5.0); Albumin/Globulin Ratio 1.1 (1.1-1.8); Alkaline Phosphatase 97 U/L (38-126); Bilirubin,Total 0.4 mg/dl (0.2-1.3); Calcium 6.7 mg/dl (8.4-10.2); Carbon Dioxide 28 mmol/L (22.0-30.0); Globulin 2.5 g/dL (1.3-3.2); Glucose 303 mg/dl (74-100); Magnesium 2.6 mg/dl (1.6-2.3); Total Protein,Serum 5.2 g/dl (6.3-8.2)
[2021-06-18 07:03] LABS: Chloride 139 mmol/L (98-107); Sodium 168 mmol/L (136-145)
--- NOTE | 2021-06-18 07:24 | HMH.ACPN2 ---
Internal Medicine - PN: Subj *Date: 06/18/21 *Time: 07:24 Interval history: Febrile yesterday afternoon to 101. No emesis. Still requiring supplemental oxygen of 4L. Having bowel movements. Patient responds to verbal and physical stimuli this morning. Answers no to most questions. Blood pressure stable. Exam Vital signs and Labs for Last 24 Hours: Temp Pulse Resp BP Pulse Ox 99.0 F 81 20 93/59 L 94 L 06/18/21 04:00 06/18/21 04:00 06/18/21 04:00 06/18/21 04:00 06/18/21 04:00 Laboratory Results - last 24 hr 06/17/21 06:58: WBC 18.5 H D, RBC 4.27 L D, Hgb 12.6 L, Hct 41.7 L, MCV 97.5 H, MCH 29.5, MCHC 30.3 L, RDW 15.4, Plt Count 95 L D, MPV 14.4 H, Neut % (Auto) 83.3 H, Lymph % (Auto) 10.7, [place] % (Auto) 3.8, Eos % (Auto) 0.2, Baso % (Auto) 2.1 H, Neut # (Auto) 15.4 H, Lymph # (Auto) 2.0, [place] # (Auto) 0.7, Eos # (Auto) 0.0, Baso # (Auto) 0.4 H, Total Counted 100, Neutrophils % (Manual) 79 H, Lymphocytes % (Manual) 13, Monocytes % (Manual) 8, Platelet Estimate Normal, Hypochromasia 2+, Macrocytosis 1+ 06/17/21 06:58: Sodium 171 H*, Potassium 3.7, Chloride 138 H, Carbon Dioxide 33 H, Anion Gap 3.7 L, BUN 49 H, Creatinine 1.10 D, Estimated Creat Clear 70, Estimated GFR 70, Est GFR ( Amer) 85 D, Glucose 174 H, Calcium 6.9 L 06/17/21 12:13: POC Glucose 274 H 06/17/21 17:35: POC Glucose 333 H* 06/17/21 19:28: Sodium 169 H*, Potassium 2.5 L* D, Chloride 139 H, Carbon Dioxide 28, Anion Gap 4.5 L, BUN 45 H, Creatinine 1.10, Estimated Creat Clear 70, Estimated GFR 70, Est GFR ( Amer) 85, Glucose 258 H D, Calcium 6.8 L 06/17/21 20:48: POC Glucose 247 H 06/18/21 05:18: WBC 12.2 H D, RBC 3.95 L, Hgb 11.8 L, Hct 38.9 L, MCV 98.4 H, MCH 29.8, MCHC 30.3 L, RDW 15.6, Plt Count 105 L, MPV 15.1 H, Neut % (Auto) 83.6 H, Lymph % (Auto) 12.9, [place] % (Auto) 3.0, Eos % (Auto) 0.1, Baso % (Auto) 0.3, Neut # (Auto) 10.2 H, Lymph # (Auto) 1.6, [place] # (Auto) 0.4, Eos # (Auto) 0.0, Baso # (Auto) 0.0 06/18/21 05:18: Sodium 168 H*, Potassium 3.0 L, Chloride 139 H, Carbon Dioxide 28, Anion Gap 4.0 L, BUN 38 H, Creatinine 1.00, Estimated Creat Clear 79, Estimated GFR 78, Est GFR ( Amer) 95, Glucose 303 H, Calcium 6.7 L, Magnesium 2.6 H D, Total Bilirubin 0.4, AST 60 H D, ALT 55 D, Alkaline Phosphatase 97, Total Protein 5.2 L D, Albumin 2.7 L, Globulin 2.5, Albumin/Globulin Ratio 1.1 I & O for Last 24 hours: Intake & Output 06/15/21 06/16/21 06/17/21 06/18/21 23:59 23:59 23:59 23:59 Intake Total 1744 / 1744 390 / 390 Output Total 650 / 950 950 / 950 400 / 400 Balance -650 / -950 794 / 794 -10 Weight 63.248 kg 63 kg 65.045 kg Microbiology Reports for the Last 24 Hours: Microbiology 06/16/21 04:00 Blood Blood Culture - Preliminary 06/16/21 04:00 Blood Blood Culture - Preliminary NO GROWTH AFTER 48 HOURS 06/16/21 04:00 Urine,Catheterized Urine Culture - Final NO GROWTH AFTER 48 HOURS Narrative: - Constitutional mild distress, cachectic, chronically ill appearing; Lower extremities contracted. unstageable heel and buttock wound, please see nurses pictures for details. Alert, responds to simple questions with appropriate answers, knows name. - *Routine HEENT Exam Head: Present: other (Misshapen skull from multiple surgery) Eye: Present: EOMI, PERRL ENT: Present: mucous membranes dry - *Routine Neck Exam Present: supple. Absent: lymphadenopathy - *Routine Respiratory Exam Present: rales (Bilateral rales with compromised air entry) - *Routine Cardiovascular Exam Present: RRR - *Routine Abdominal Exam Present: soft. Non-tender, G-tube in good position. - *Routine Extremities Exam Absent: cyanosis, clubbing, edema; Extremity contractures as noted above, skin documentation per nursing staff. - *Routine Skin Exam Present: warm. Absent: rash - *Routine Neurological Exam Present: alert, motor deficit, Oriented x1. Assessment
--- NOTE | 2021-06-18 08:02 | DIET.NUTRFU ---
Orders received to initiate TF. Recommend following TF orders entered previously by Gloria Schmitt RD for when pt medically stable. Flush amount has been edited by Dr. Sanchez to 200mL q4 until Na <155 and then back to original recommendations. Na 168 at this time. Will continue to monitor.
[2021-06-18 11:50] LABS: POC Glucose,Bedside 294 (70-110)
--- NOTE | 2021-06-18 17:30 | PC.NURSE ---
Oral care provided and orally suctioned pt. PRN tylenol given and applied cool wash cloths for fever. Mx continues.
[2021-06-18 18:28] LABS: Potassium 3.5 mmoL/L (3.5-5.1)
[2021-06-18 18:31] LABS: Blood Urea Nitrogen 26 mg/dl (9-20); Creatinine Clearance Estimated 88 mL/min (50-200); Estimated Glomerular Filt Rate 89 ml/min (>60); GFR (African American) 107 ML/MIN (>60)
[2021-06-18 18:32] LABS: Anion Gap 5.5 mEq/L (5-15); Calcium 7.5 mg/dl (8.4-10.2); Carbon Dioxide 28 mmol/L (22.0-30.0); Glucose 293 mg/dl (74-100)
[2021-06-18 18:42] LABS: Chloride 136 mmol/L (98-107); Sodium 166 mmol/L (136-145)
--- NOTE | 2021-06-18 19:09 | PC.NURSE ---
Reported critical sod and chloride to USHA BecerraO.
[2021-06-18 22:19] LABS: POC Glucose,Bedside 320 (70-110)
[2021-06-19] VITALS (8 sets, daily range): BP systolic 98–124; BP diastolic 46–62; PULSE 70–90; RESP 17–20; TEMP 36.5–37.7; O2SAT 90–96; BMI 24.7
--- NOTE | 2021-06-19 04:54 | PC.NURSE ---
Patient slept well for most of the night. Remains on 4L nasal canula with 02 sats remaining above 92%. Patient ran fever of 101.3 treated with medication per jul. Tube feed increased to 50ml/hr, tolerated this well. Dressing to coccyx changed this shift. This nurse suctioned patient multiple times this shift.
[2021-06-19 07:10] LABS: POC Glucose,Bedside 350 (70-110)
[2021-06-19 07:33] LABS: Basophils # 0.1 K/mm3 (0-0.2); Basophils % 1.1 % (0.1-2.0); Eosinophils # 0.1 K/mm3 (0.0-0.4); Eosinophils % 1.1 % (0.1-12.0); Hematocrit 44.5 % (42.0-52.0); Hemoglobin 13.1 g/dL (14.1-18.0); Lymphocytes # 1.4 K/mm3 (0.7-4.5); Lymphocytes % 14.4 % (10-50); Mean Corpuscular HGB Conc 29.5 g/dL (31.8-35.4); Mean Corpuscular Hemoglobin 29.5 pg (27.0-31.2); Mean Corpuscular Volume 99.8 fl (80-94); Monocytes # 0.3 K/mm3 (0.1-1.0); Monocytes % 2.6 % (1.7-9.3); Neutrophils # 7.8 K/mm3 (1.8-7.8); Neutrophils % 80.9 % (37.0-80.0); Platelet Count 98 K/mm3 (142-424); Red Blood Count 4.46 M/mm3 (4.60-6.20); Red Cell Distribution Width 15.5 % (11.5-17.5); White Blood Count 9.7 K/mm3 (4.8-10.8)
[2021-06-19 07:38] LABS: Potassium 4.5 mmoL/L (3.5-5.1)
[2021-06-19 07:41] LABS: Alanine Aminotransferase 55 U/L (12-78); Albumin Level 2.8 g/dl (3.5-5.0); Alkaline Phosphatase 88 U/L (38-126); Anion Gap 5.5 mEq/L (5-15); Aspartate Amino Transferase 65 U/L (17-59); Bilirubin,Total 0.4 mg/dl (0.2-1.3); Blood Urea Nitrogen 21 mg/dl (9-20); Carbon Dioxide 27 mmol/L (22.0-30.0); Creatinine Clearance Estimated 118 mL/min (50-200); Estimated Glomerular Filt Rate 118 ml/min (>60); GFR (African American) 143 ML/MIN (>60); Globulin 2.7 g/dL (1.3-3.2); Total Protein,Serum 5.5 g/dl (6.3-8.2)
[2021-06-19 07:42] LABS: Calcium 7.3 mg/dl (8.4-10.2); Glucose 358 mg/dl (74-100)
[2021-06-19 08:00] LABS: Chloride 133 mmol/L (98-107); Sodium 161 mmol/L (136-145)
--- NOTE | 2021-06-19 09:49 | HMH.ACPN2 ---
Internal Medicine - PN: Subj *Date: 06/19/21 *Time: 15:27 Interval history: No acute events overnight. Stable on 4 L nasal cannula oxygen. Tolerating tube feeds. Sodium improving. Having numerous bowel movements a day. Exam Vital signs and Labs for Last 24 Hours: Temp Pulse Resp BP Pulse Ox 99.7 F H 90 20 121/46 L 94 L 06/19/21 08:00 06/19/21 09:00 06/19/21 08:00 06/19/21 08:00 06/19/21 08:00 Laboratory Results - last 24 hr 06/18/21 06:05: POC Glucose 294 H 06/18/21 11:54: POC Glucose 320 H* 06/18/21 18:10: Sodium 166 H*, Potassium 3.5, Chloride 136 H, Carbon Dioxide 28, Anion Gap 5.5, BUN 26 H D, Creatinine 0.90, Estimated Creat Clear 88, Estimated GFR 89, Est GFR ( Amer) 107, Glucose 293 H, Calcium 7.5 L 06/19/21 07:02: POC Glucose 350 H* 06/19/21 07:25: WBC 9.7, RBC 4.46 L, Hgb 13.1 L, Hct 44.5, MCV 99.8 H, MCH 29.5, MCHC 29.5 L, RDW 15.5, Plt Count 98 L, MPV 15.0 H, Neut % (Auto) 80.9 H, Lymph % (Auto) 14.4, [place] % (Auto) 2.6, Eos % (Auto) 1.1, Baso % (Auto) 1.1, Neut # (Auto) 7.8, Lymph # (Auto) 1.4, [place] # (Auto) 0.3, Eos # (Auto) 0.1, Baso # (Auto) 0.1 06/19/21 07:25: Sodium 161 H*, Potassium 4.5 D, Chloride 133 H, Carbon Dioxide 27, Anion Gap 5.5, BUN 21 H, Creatinine 0.70 D, Estimated Creat Clear 118, Estimated GFR 118, Est GFR ( Amer) 143 D, Glucose 358 H D, Calcium 7.3 L, Total Bilirubin 0.4, AST 65 H, ALT 55, Alkaline Phosphatase 88, Total Protein 5.5 L, Albumin 2.8 L, Globulin 2.7, Albumin/Globulin Ratio 1.0 L I & O for Last 24 hours: Intake & Output 06/16/21 06/17/21 06/18/21 06/19/21 23:59 23:59 23:59 23:59 Intake Total 1744 / 1744 850 / 850 Output Total 650 / 950 950 / 950 1500 / 1825 325 / 325 Balance -650 / -950 794 / 794 -650 / -975 -325 / -325 Weight 63.248 kg 63 kg 65.045 kg 67.358 kg Microbiology Reports for the Last 24 Hours: Microbiology 06/16/21 04:00 Blood Blood Culture - Final Staphylococcus epidermidis Narrative: - Constitutional mild distress, cachectic, chronically ill appearing; Lower extremities contracted. None unstageable heel and buttock wound, please see nurses pictures for details. Alert, responds to simple questions with appropriate answers, knows name. - *Routine HEENT Exam Head: Present: other (Misshapen skull from multiple surgery) Eye: Present: EOMI, PERRL ENT: Present: mucous membranes dry - *Routine Neck Exam Present: supple. Absent: lymphadenopathy - *Routine Respiratory Exam Present: rhonchi bilaterally, change with cough, no wheeze. - *Routine Cardiovascular Exam Present: RRR - *Routine Abdominal Exam Present: soft. Non-tender, G-tube in good position. - *Routine Extremities Exam Absent: cyanosis, clubbing, edema; Extremity contractures as noted above, skin documentation per nursing staff. - *Routine Skin Exam Present: warm. Absent: rash - *Routine Neurological Exam Present: alert, motor deficit, Oriented x1. 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), closed Status: Acute Category: Medical Code(s): S09.8XXA - Other specified injuries of head, initial encounter; R47.01 - Aphasia (4) Elevated glucose level Status: Acute Category: Medical Code(s): R73.09 - Other abnormal glucose (5) HCAP (healthcare-associated pneumonia) Status: Acute Category: Medical Code(s): J18.9 - Pneumonia, unspecified organism (6) Septic shock Status: Acute Category: Medical Code(s): A41.9 - Sepsis, unspecified organism; R65.21 - Severe sepsis with septic shock (7) Severe sepsis with acute organ dysfunction Status: Acute Category: Medical Code(s): A41.9 - Sepsis, unspecified organism; R65.20 - Severe sepsis
--- NOTE | 2021-06-19 10:17 | XR_ITS ---
PROCEDURE INFORMATION: Exam: XR Chest Exam date and time: 06/19/2021 10:17 AM Age: 50 years old Clinical indication: Shortness of breath; Additional info: Increased rhonchi TECHNIQUE: Imaging protocol: XR of the chest. Views: 1 view. COMPARISON: CR XR CHEST PORTABLE 06/16/2021 3:48 AM FINDINGS: Lungs: Patchy bibasilar airspace opacities, worsened from 06/16/2021. Pleural spaces: Unremarkable. No pleural effusion. No pneumothorax. Heart/Mediastinum: Unremarkable. No cardiomegaly. Bones/joints: Unremarkable. IMPRESSION: Multilobar pneumonia appears mildly worsened 06/16/2021.
[2021-06-19 16:59] LABS: Potassium 4.3 mmoL/L (3.5-5.1)
[2021-06-19 17:01] LABS: Blood Urea Nitrogen 17 mg/dl (9-20); Creatinine Clearance Estimated 137 mL/min (50-200); Estimated Glomerular Filt Rate 141 ml/min (>60); GFR (African American) 171 ML/MIN (>60)
[2021-06-19 17:02] LABS: Anion Gap 4.3 mEq/L (5-15); Calcium 7.3 mg/dl (8.4-10.2); Carbon Dioxide 27 mmol/L (22.0-30.0); Glucose 296 mg/dl (74-100)
[2021-06-19 17:06] LABS: Chloride 130 mmol/L (98-107); Sodium 157 mmol/L (136-145)
--- NOTE | 2021-06-19 17:22 | PC.NURSE ---
Notified Dr. Alcantara registered medical transcriptionist for Dr. Sanchez of pt's critical sodium and chloride, which is improving and if decreasing as noted, Dr. Sanchez stated this am in rounds to [facility] IV. Dr. Alcantara aware.
--- NOTE | 2021-06-19 21:56 | PC.NURSE ---
200 ml flush given via gtube
[2021-06-19 22:51] LABS: POC Glucose,Bedside 234 (70-110)
[2021-06-20] VITALS (8 sets, daily range): BP systolic 85–130; BP diastolic 52–77; PULSE 59–90; RESP 14–20; TEMP 36.9–37.9; O2SAT 92–98; BMI 25.4
--- NOTE | 2021-06-20 03:39 | PC.NURSE ---
H2O FLUSH GIVEN PER GTUBE AT THIS TIME
[2021-06-20 06:39] LABS: Basophils # 0.1 K/mm3 (0-0.2); Basophils % 0.5 % (0.1-2.0); Eosinophils # 0.2 K/mm3 (0.0-0.4); Eosinophils % 2.1 % (0.1-12.0); Hematocrit 39.1 % (42.0-52.0); Hemoglobin 12.2 g/dL (14.1-18.0); Lymphocytes # 1.7 K/mm3 (0.7-4.5); Lymphocytes % 14.7 % (10-50); Mean Corpuscular HGB Conc 31.1 g/dL (31.8-35.4); Mean Corpuscular Hemoglobin 29.7 pg (27.0-31.2); Mean Corpuscular Volume 95.7 fl (80-94); Mean Platelet Volume 13.4 fl (7.4-10.4); Monocytes # 0.5 K/mm3 (0.1-1.0); Monocytes % 4.4 % (1.7-9.3); Neutrophils # 8.8 K/mm3 (1.8-7.8); Neutrophils % 78.2 % (37.0-80.0); Platelet Count 104 K/mm3 (142-424); Red Blood Count 4.09 M/mm3 (4.60-6.20); Red Cell Distribution Width 15.1 % (11.5-17.5); White Blood Count 11.2 K/mm3 (4.8-10.8)
[2021-06-20 07:15] LABS: Chloride 125 mmol/L (98-107); Potassium 4.7 mmoL/L (3.5-5.1)
[2021-06-20 07:18] LABS: Anion Gap 3.7 mEq/L (5-15); Blood Urea Nitrogen 20 mg/dl (9-20); Calcium 7.6 mg/dl (8.4-10.2); Carbon Dioxide 29 mmol/L (22.0-30.0); Creatinine Clearance Estimated 141 mL/min (50-200); Estimated Glomerular Filt Rate 141 ml/min (>60); GFR (African American) 171 ML/MIN (>60); Glucose 250 mg/dl (74-100)
[2021-06-20 07:19] LABS: Magnesium 2.6 mg/dl (1.6-2.3)
[2021-06-20 07:56] LABS: Sodium 153 mmol/L (136-145)
--- NOTE | 2021-06-20 08:54 | HMH.ACPN2 ---
Internal Medicine - PN: Subj *Date: 06/20/21 *Time: 08:54 Interval history: Patient is about the same in regards to alertness. Responsive to verbal stimuli, does talk in 3-4 word sentences. Tube feeds infusing well. At goal rate. Labs and culture results reviewed. Exam Vital signs and Labs for Last 24 Hours: Temp Pulse Resp BP Pulse Ox 98.8 F 73 18 129/67 93 L 06/20/21 07:43 06/20/21 07:43 06/20/21 07:43 06/20/21 07:43 06/20/21 07:43 Laboratory Results - last 24 hr 06/19/21 16:17: Sodium 157 H*, Potassium 4.3, Chloride 130 H, Carbon Dioxide 27, Anion Gap 4.3 L, BUN 17, Creatinine 0.60 L, Estimated Creat Clear 137, Estimated GFR 141, Est GFR ( Amer) 171, Glucose 296 H, Calcium 7.3 L 06/19/21 21:16: POC Glucose 234 H 06/20/21 06:18: WBC 11.2 H, RBC 4.09 L, Hgb 12.2 L, Hct 39.1 L, MCV 95.7 H, MCH 29.7, MCHC 31.1 L, RDW 15.1, Plt Count 104 L, MPV 13.4 H, Neut % (Auto) 78.2, Lymph % (Auto) 14.7, [place] % (Auto) 4.4, Eos % (Auto) 2.1, Baso % (Auto) 0.5, Neut # (Auto) 8.8 H, Lymph # (Auto) 1.7, [place] # (Auto) 0.5, Eos # (Auto) 0.2, Baso # (Auto) 0.1 06/20/21 06:18: Sodium 153 H*, Potassium 4.7, Chloride 125 H, Carbon Dioxide 29, Anion Gap 3.7 L, BUN 20, Creatinine 0.60 L, Estimated Creat Clear 141, Estimated GFR 141, Est GFR ( Amer) 171, Glucose 250 H, Calcium 7.6 L, Magnesium 2.6 H I & O for Last 24 hours: Intake & Output 06/17/21 06/18/21 06/19/21 06/20/21 11:59 11:59 11:59 11:59 Intake Total 2134 / 2134 460 / 460 1950 / 1950 Output Total 950 / 950 1250 / 1250 1225 / 1225 2150 / 2150 Balance -950 / -950 884 / 884 -765 / -765 -200 / -200 Weight 138 lb 14.259 oz 143 lb 6.4 oz 148 lb 8 oz 152 lb 12.8 oz Microbiology Reports for the Last 24 Hours: Microbiology 06/16/21 04:00 Blood Blood Culture - Final Staphylococcus epidermidis Narrative: Limb contractures as previously noted. Wounds present on admission noted per nursing staff pictures. Lungs have some rhonchi bilaterally but good air movement. G-tube site looks good. Abdomen is soft. Oropharynx moist and clear. No JVD. Heart rate regular. No murmurs. Neurologic exam unchanged. 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), closed Status: Acute Category: Medical Code(s): S09.8XXA - Other specified injuries of head, initial encounter; R47.01 - Aphasia (4) Elevated glucose level Status: Acute Category: Medical Code(s): R73.09 - Other abnormal glucose (5) HCAP (healthcare-associated pneumonia) Status: Acute Category: Medical Code(s): J18.9 - Pneumonia, unspecified organism (6) Septic shock Status: Acute Category: Medical Code(s): A41.9 - Sepsis, unspecified organism; R65.21 - Severe sepsis with septic shock (7) Severe sepsis with acute organ dysfunction Status: Acute Category: Medical Code(s): A41.9 - Sepsis, unspecified organism; R65.20 - Severe sepsis without septic shock (8) Hypernatremia Status: Acute Category: Medical Code(s): E87.0 - Hyperosmolality and hypernatremia (9) Hypocalcemia Status: Acute Category: Medical Code(s): E83.51 - Hypocalcemia (10) Hypokalemia Status: Acute Category: Medical Code(s): E87.6 - Hypokalemia - Assessment and plan all Dx Assessment and Plan for all problems:: Hypernatremia with other electrolyte disturbances are improving. No changes in current fluid administration. I will give him 1 more day of IV fluids and then transition back to care home tomorrow on free water administration. Repeat blood cultures are pending. Initial blood culture showed 1 out of 2 bottles positive for staph epi. Probable commensal organism. No change in antib
--- NOTE | 2021-06-20 09:38 | DIET.NUTRFU ---
Pt is tolerating TF at 50mL/hr. Na is 153H today, indicating levels are slowly decreasing since admit. Pt receiving x-rays today.
--- NOTE | 2021-06-20 09:45 | SW/DCPLANNER ---
Addendum entered by Geraldine Briseno 06/21/21 12:33: NEGATIVE COVID swab has been faxed to Erin craft/ [facility]. Addendum entered by Geraldine Briseno 06/21/21 08:31: The plan for this patient is to return to [facility] today: I have informed Erin ALFARO. This patient will require a COVID swab prior to returning. Original Note: This patient currently resides at [facility] level of care per Erin ALFARO. The plan is for this patient to discharge back to [facility] tomorrow pending no setbacks. Patient will require an additional COVID swab prior to returning.
--- NOTE | 2021-06-20 11:06 | P.PN_ITS ---
Internal Medicine - PN: Subj *Date: 06/20/21 *Time: 11:06 Exam Vital signs and Labs for Last 24 Hours: Temp Pulse Resp BP Pulse Ox 98.8 F 73 18 129/67 93 L 06/20/21 07:43 06/20/21 07:43 06/20/21 07:43 06/20/21 07:43 06/20/21 07:43 Laboratory Results - last 24 hr 06/19/21 16:17: Sodium 157 H*, Potassium 4.3, Chloride 130 H, Carbon Dioxide 27, Anion Gap 4.3 L, BUN 17, Creatinine 0.60 L, Estimated Creat Clear 137, Estimated GFR 141, Est GFR ( Amer) 171, Glucose 296 H, Calcium 7.3 L 06/19/21 21:16: POC Glucose 234 H 06/20/21 06:18: WBC 11.2 H, RBC 4.09 L, Hgb 12.2 L, Hct 39.1 L, MCV 95.7 H, MCH 29.7, MCHC 31.1 L, RDW 15.1, Plt Count 104 L, MPV 13.4 H, Neut % (Auto) 78.2, Lymph % (Auto) 14.7, [place] % (Auto) 4.4, Eos % (Auto) 2.1, Baso % (Auto) 0.5, Neut # (Auto) 8.8 H, Lymph # (Auto) 1.7, [place] # (Auto) 0.5, Eos # (Auto) 0.2, Baso # (Auto) 0.1 06/20/21 06:18: Sodium 153 H*, Potassium 4.7, Chloride 125 H, Carbon Dioxide 29, Anion Gap 3.7 L, BUN 20, Creatinine 0.60 L, Estimated Creat Clear 141, Estimated GFR 141, Est GFR ( Amer) 171, Glucose 250 H, Calcium 7.6 L, Magnesium 2.6 H I & O for Last 24 hours: Intake & Output 06/17/21 06/18/21 06/19/21 06/20/21 23:59 23:59 23:59 23:59 Intake Total 1744 / 1744 850 / 850 650 / 650 1300 / 1300 Output Total 950 / 950 1500 / 1825 1225 / 2025 1250 / 1250 Balance 794 / 794 -650 / -975 -575 / -1375 50 / 50 Weight 63 kg 65.045 kg 67.358 kg 69.309 kg Microbiology Reports for the Last 24 Hours: Microbiology 06/16/21 04:00 Blood Blood Culture - Final Staphylococcus epidermidis Assessment and Plan (1) ALEJANDRO (acute kidney injury) Status: Acute Category: Medical Code(s): N17.9 - Acute kidney failure, un specified (2) Acute hypernatremia Status: Acute Category: Medical Code(s): E87.0 - Hyperosmolality and h ypernatremia (3) 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), closed Status: Acute Category: Medical Code(s): S09.8XXA - Other specified injuries of head, initial encounter; R47.01 - Aphasia (4) Elevated glucose level Status: Acute Category: Medical Code(s): R73.09 - Other abnormal glucose (5) HCAP (healthcare-associated pneumonia) Status: Acute Category: Medical Code(s): J18.9 - Pneumonia, unspecified organism (6) Septic shock Status: Acute Category: Medical Code(s): A41.9 - Sepsis, unspecified organism; R65.21 - Severe sepsis with septic shock (7) Severe sepsis with acute organ dysfunction Status: Acute Category: Medical Code(s): A41.9 - Sepsis, unspecified organism; R65.20 - Severe sepsis without septic shock (8) Hypernatremia Status: Acute Category: Medical Code(s): E87.0 - Hyperosmolality and hypernatremia (9) Hypocalcemia Status: Acute Category: Medical Code(s): E83.51 - Hypocalcemia (10) Hypokalemia Status: Acute Category: Medical Code(s): E87.6 - Hypokalemia The patient's infection will respond to the chosen ABx?: Yes (EMPIRIC TREATMENT FOR PNEUMONIA) Is the patient receiving the right drug, dose, and route?: Yes Could a more targeted ABx be ordered?: No (CULTURES PENDING, BLOOD AND SPUTUM)
--- NOTE | 2021-06-20 13:11 | PC.NURSE ---
Addendum entered by Hayley Pablo RN 06/20/21 17:16: PT HAD 10 ML'S RESIDUAL AT 1700. PT HAD 130 ML FLUSH. TUBE FEEDINGS STARTED BACK AT 30 ML'S/HR. Original Note: AT 1300 PT HAD 100 ML'S OF RESIDUAL. TUBE FEEDING STOPPED FOR NOW. 60 ML'S FLUSH GIVE WITH 1300 MEDICATION ADMINISTRATION. WILL CHECK RESIDUAL AGAIN AT 1700. [employer] NOTIFIED.
--- NOTE | 2021-06-20 14:26 | DIET.NUTRFU ---
Rd notified of high residuals with TF on hold. Spoke to [facility] that patient lives at, he uses 2cal at 45ml/hr x18hrs. Formula is not available to hospital. Current formula continues to be best choice. Spoke to nursing about checking residuals in 4 hours and starting at 30ml/hr and increase as tolerated. Also spoke to nursing about starting his regular omeprazole dose. Patient was also started on dextrose to tx hyponatremia. The dextrose/potassium was discontinued yesterday d/t potassium WNL.
--- NOTE | 2021-06-20 15:11 | PC.NURSE ---
PT IS RESTING IN BED. PT COMPLAINS OF DISCOMFORT WHILE TURNING AND REPOSITIONING. LUNG SOUNDS HAVE BILATERAL RHONCHI. ABDOMEN SOFT/NON TENDER WITH ACTIVE BOWEL SOUNDS. MULTIPLE CONTRACTURES NOTED. STAGE 2 NOTED TO THE COCCYX WITH DRESSING C/D/I. STAGE 1 NOTED TO THE LEFT HEEL. WILL CONTINUE TO MONITOR.
[2021-06-20 16:26] LABS: POC Glucose,Bedside 281 (70-110)
[2021-06-20 21:56] LABS: POC Glucose,Bedside 247 (70-110)
[2021-06-20 22:13] LABS: POC Glucose,Bedside 225 (70-110)
[2021-06-21] VITALS: BP 111/65; PULSE 84; RESP 22; TEMP 37.1; O2SAT 94
[2021-06-21 04:00] VITALS: BP 97/61; PULSE 76; RESP 16; TEMP 36.4; O2SAT 95
[2021-06-21 06:06] LABS: POC Glucose,Bedside 227 (70-110)
[2021-06-21 06:27] VITALS: BMI 25.2
[2021-06-21 08:00] VITALS: BP 106/48; PULSE 79; RESP 16; TEMP 37.2; O2SAT 94
[2021-06-21 08:09] LABS: Basophils # 0.1 K/mm3 (0-0.2); Basophils % 1.1 % (0.1-2.0); Eosinophils # 0.2 K/mm3 (0.0-0.4); Eosinophils % 1.8 % (0.1-12.0); Hematocrit 36.7 % (42.0-52.0); Hemoglobin 11.8 g/dL (14.1-18.0); Lymphocytes # 1.7 K/mm3 (0.7-4.5); Lymphocytes % 17.3 % (10-50); Mean Corpuscular HGB Conc 32.2 g/dL (31.8-35.4); Mean Corpuscular Hemoglobin 29.5 pg (27.0-31.2); Mean Corpuscular Volume 91.7 fl (80-94); Mean Platelet Volume 13.3 fl (7.4-10.4); Monocytes # 0.4 K/mm3 (0.1-1.0); Neutrophils # 7.4 K/mm3 (1.8-7.8); Neutrophils % 75.8 % (37.0-80.0); Platelet Count 128 K/mm3 (142-424); Red Cell Distribution Width 15.1 % (11.5-17.5); White Blood Count 9.7 K/mm3 (4.8-10.8)
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
[2021-06-21 08:16] LABS: Chloride 112 mmol/L (98-107)
[2021-06-21 08:17] LABS: Potassium 3.8 mmoL/L (3.5-5.1); Sodium 145 mmol/L (136-145)
[2021-06-21 08:20] LABS: Anion Gap 2.8 mEq/L (5-15); Blood Urea Nitrogen 18 mg/dl (9-20); Carbon Dioxide 34 mmol/L (22.0-30.0); Creatinine Clearance Estimated 140 mL/min (50-200); Estimated Glomerular Filt Rate 141 ml/min (>60); GFR (African American) 171 ML/MIN (>60); Glucose 187 mg/dl (74-100)
[2021-06-21 08:37] LABS: Coronavirus 19, PCR Not Detected (NotDetected); Influenza A, PCR Not Detected (NotDetected); Influenza B, PCR Not Detected (NotDetected)
--- NOTE | 2021-06-21 10:52 | PC.NURSE ---
Pt waiting on EMS for transportation
[2021-06-21 11:23] VITALS: BP 101/58; PULSE 84; RESP 18; TEMP 36.8; O2SAT 96
[2021-06-21 12:15] LABS: POC Glucose,Bedside 200 (70-110)
== END 2021-06-21 13:20 | DRG 871 ==
LOC: ER 05:54 → 2ND 08:49
PROVIDERS: Internal Medicine Adolescent Medicine; Admitting Provider Internal Medicine Adolescent Medicine; Emergency Provider Emergency Medicine; Visit Provider Internal Medicine Adolescent Medicine
DX: A41.9 Sepsis, unspecified organism (principal); R65.21 Severe sepsis with septic shock; J18.9 Pneumonia, unspecified organism; R47.01 Aphasia; E87.0 Hyperosmolality and hypernatremia; N17.9 Acute kidney failure, unspecified; Y95 Nosocomial condition; Z66 Do not resuscitate; E87.6 Hypokalemia; E83.51 Hypocalcemia; R73.9 Hyperglycemia, unspecified; Z87.820 Personal history of traumatic brain injury; Z20.822 Contact with and (suspected) exposure to COVID-19
CPT/HCPCS: 36415; 51702; 71045; 74177; 80048; 80053; 81001; 82009; 82803; 82947; 82962; 83036; 83605; 83735; 84145; 84484; 85007; 85025; 85651; 86140; 87040; 87077; 87086; 87186; 93005; 94760; 94761; 96365; 96366; 96375; 99285; C9803; J0696; J3370; Q9967; U0003; U0005

== ENCOUNTER → 2021-06-27 07:05 | Outpatient (CLI) | payer MEDICARE, MEDICAID, SELFPAY ==
[2021-06-27 08:12] LABS: Basophils # 0.1 K/mm3 (0-0.2); Basophils % 0.7 % (0.1-2.0); Eosinophils # 0.1 K/mm3 (0.0-0.4); Eosinophils % 0.8 % (0.1-12.0); Hematocrit 37.2 % (42.0-52.0); Lymphocytes # 2.1 K/mm3 (0.7-4.5); Mean Corpuscular HGB Conc 32.2 g/dL (31.8-35.4); Mean Corpuscular Hemoglobin 29.2 pg (27.0-31.2); Mean Corpuscular Volume 90.7 fl (80-94); Monocytes # 0.4 K/mm3 (0.1-1.0); Monocytes % 5.6 % (1.7-9.3); Neutrophils # 4.9 K/mm3 (1.8-7.8); Neutrophils % 64.8 % (37.0-80.0); Platelet Count 217 K/mm3 (142-424); Red Blood Count 4.11 M/mm3 (4.60-6.20); Red Cell Distribution Width 15.9 % (11.5-17.5); White Blood Count 7.6 K/mm3 (4.8-10.8)
[2021-06-27 08:32] LABS: Hemoglobin A1C 7.5 % (4.0-6.0)
[2021-06-27 09:38] LABS: Chloride 101 mmol/L (98-107); Potassium 4.1 mmoL/L (3.5-5.1); Sodium 135 mmol/L (136-145)
[2021-06-27 09:41] LABS: Anion Gap 7.1 mEq/L (5-15); Blood Urea Nitrogen 14 mg/dl (9-20); Carbon Dioxide 31 mmol/L (22.0-30.0); Estimated Glomerular Filt Rate 141 ml/min (>60); GFR (African American) 171 ML/MIN (>60)
[2021-06-27 09:42] LABS: Calcium 7.9 mg/dl (8.4-10.2); Glucose 176 mg/dl (74-100)
== END ==
PROVIDERS: Visit Provider Internal Medicine Adolescent Medicine
DX: R73.9 Hyperglycemia, unspecified (principal)
CPT/HCPCS: 36415; 80048; 83036; 85025